=== PATIENT | male | born 1950 | race Caucasian/White ===

== ENCOUNTER 2016-11-24 14:38 | Emergency (ER) | payer OTHER ==
[2016-11-24 14:53] VITALS: BMI 29.7
[2016-11-24] MEDS ORDERED: ASPIRIN 81 MG CHEWABLE TABLETS PO ONE (15:01)
--- NOTE | 2016-11-24 15:06 | PDOC ---
History of Present Illness - General History Source: Patient, Old Records Exam Limitations: No Limitations - History of Present Illness Initial Comments: 11/24/16 15:57 The patient is a 66 year old male, with a significant past medical history of HTN, Afib (on Xarelto) and diabetes, who presents to the emergency department with intermittent left shoulder pain that radiates to the left neck and left jaw for the past 2 days. The patient states that the pain is intermittent, but starts gradually and then gradually goes away. He reports that the pain is sometimes worse upon inspiration. At its worst, the patient reports that his pain is a 7/10 in severity but currently in the ED, he rates it a 3/10 in severity. He reports some nausea but denies any vomiting. The patient denies any headache, dizziness or vision changes. The patient denies any diaphoresis, chest pain or shortness of breath. The patient denies any numbness or tingling in his extremities. The patient reports that he had a negative cardiac catheterization approximately 2 years ago. He reports that he is due to schedule a cardioversion in the next couple of weeks. Allergies: None reported. Past Surgical History: None reported. Social History: Non smoker. Denies alcohol or drug use. PCP: Dr. Chacon <Naya Roth - Last Filed: 11/24/16 18:29> <Piter Reed - Last Filed: 11/25/16 12:07> - General Chief Complaint: Pain Stated Complaint: PAIN LT NECK DOWN ARM Time Seen by Provider: 11/24/16 14:42 Past History <Naya Roth - Last Filed: 11/24/16 18:29> - Past Medical History Cardiac Disorders: Yes (A-FIB) Diabetes: Yes HTN: Yes - Psycho/Social/Smoking Cessation Hx Anxiety: No Suicidal Ideation: No Smoking History: Unknown if ever smoked Hx Alcohol Use: No Drug/Substance Use Hx: No Substance Use Type: None <Piter Reed - Last Filed: 11/25/16 12:07> - Past Medical History Allergies/Adverse Reactions: Allergies Allergy/AdvReac Type Severity Reaction Status Date / Time No Known Allergies Allergy Verified 09/15/16 18:23 Home Medications: Ambulatory Orders Empagliflozin [Jardiance] 10 mg PO DAILY 09/15/16 Losartan Potassium [Cozaar -] 50 mg PO DAILY 09/15/16 Metoprolol Succinate [Toprol Xl] 100 mg PO DAILY 09/15/16 Rivaroxaban [Xarelto -] 10 mg PO DAILY 09/15/16 Atorvastatin Ca [Lipitor] 20 mg PO HS 11/24/16 Polyethylene Glycol 3350 [Miralax (For Bowel Prep) -] 17 gm PO PRN 11/24/16 Review of Systems - Review of Systems Able to Perform ROS?: Yes Comments:: 11/24/16 15:57 CONSTITUTIONAL: No reported: Fever, Chills, Diaphoresis, Generalized Weakness, Malaise, Loss of Appetite HEENT: No reported: Rhinorrhea, Nasal Congestion, Throat Pain, Throat Swelling, Difficulty Swallowing, Mouth Swelling, Ear Pain, Eye Pain, Visual Changes CARDIOVASCULAR: No reported: Chest Pain, Syncope, Palpitations, Irregular Heart Rate, Lightheadedness, Peripheral Edema RESPIRATORY: No reported: Cough, Shortness of Breath, SOB with Exertion, Orthopnea, Wheezing , Stridor, Hemoptysis GASTROINTESTINAL: Reported: +Nausea No reported: Abdominal pain, Abdominal Distension, Vomiting, Diarrhea, Constipation, Melena, Hematochezia GENITOURINARY: No reported: Dysuria, Frequency, Urgency, Hesitancy, Flank Pain, Genital Pain MUSCULOSKELETAL: Reported: +Left Shoulder Pain. Left Neck Pain, Left Jaw Pain. No reported: Joint Swelling, Back pain SKIN: No reported: Rash, Itching, Pallor HEMATOLOGIC/IMMUNOLOGIC: No reported: Easy Bleeding, Easy Bruising, Lymphadenopathy, Frequent infections ENDOCRINE: No reported: Unexplained Weight Gain, Unexplained Weight Loss, Heat Intolerance , Cold Intolerance NEUROLOGIC: No reported: Headache, Focal Weakness, Paresthesias, Vertigo, Lightheadedness, Unsteady Gait, Seizure, Mental Status Changes, Incontinence PSYCHIATRIC: No reported: Anxiety, Depression <CollingsworthNaya Infante - Last Filed: 11/24/16 18:29> *Physical Exam - Vital Signs Last Vital Signs Temp Pulse Resp BP Pulse Ox 98.1 F 69 15 118/80 96 11/24/16 14:50 11/24/16 15:38 11/24/16 15:38 11/24/16 15:38 11/24/16 15:38 - Physical Exam Comments: 11/24/16 15:58 GENERAL: The patient is awake, alert, and fully oriented, nontoxic - in no acute distress. HEAD: Normocephalic, atraumatic. EYES: Extraocular movements intact, sclera anicteric, conjunctiva clear. ENT: Normal voice, moist mucous membranes. NECK: Normal range of motion, supple. LUNGS: Breath sounds equal, clear to auscultation bilaterally. No wheezes, no rhonchi, no rales. HEART: Irregularly irregular, without murmur, rub or gallop. ABDOMEN: Soft, nontender, normoactive bowel sounds. No guarding, no rebound. No CVA tenderness EXTREMITIES: Normal range of motion, no edema. No clubbing or cyanosis. No cords , erythema, or tenderness. NEUROLOGICAL: No facial asymmetry. Normal speech. PSYCH: Normal mood, normal affect. SKIN: Warm, dry, normal turgor. <Naya Roth - Last Filed: 11/24/16 18:29> - Vital Signs Last Vital Signs Temp Pulse Resp BP Pulse Ox 98.1 F 70 18 135/85 98 11/24/16 14:50 11/24/16 14:50 11/24/16 14:50 11/24/16 14:50 11/24/16 14:50 <Piter Reed - Last Filed: 11/25/16 12:07> Heart Score/ECG Review - History History: Slightly suspicious - Electrocardiogram EKG: Normal - Age Age: >/= 65 - Risk Factors Risk Factors Heart Score: Yes Hx Hypercholesterolemia, Yes Hx Hypertension, Yes Hx Diabetes Based on the list above the patient has:: >/=3 risk factors or Hx atherosclerotic disease - Troponin Troponin: </= normal limit - Score Heart Score - Total: 4 - ECG Impressions Comment:: 11/24/16 16:18 Twelve-lead EKG was performed and reviewed by me. Irregularly irregular rate of [address] Changes suggestive of acute ischemia <Piter Reed - Last Filed: 11/25/16 12:07> ED Treatment Course - LABORATORY CBC & Chemistry Diagram: 11/24/16 15:09 11/24/16 15:09 - ADDITIONAL ORDERS Additional order review: Laboratory Results 11/24/16 11/24/16 15:09 15:09 Sodium 134 L Potassium 4.4 Chloride 102 Carbon Dioxide 23 Anion Gap 9 BUN 19 H Creatinine 0.9 Creat Clearance w eGFR > 60 Random Glucose 136 H Calcium 9.3 Total Bilirubin 1.5 H AST 20 ALT 16 Alkaline Phosphatase 49 Creatine Kinase 74 Troponin I < 0.03 L Total Protein 6.4 Albumin 4.1 - Medications Given in the ED: ED Medications Discontinued Medications Generic Name Dose Route Start Last Admin Trade Name Bony PRN Reason Stop Dose Admin Aspirin 162 mg 11/24/16 15:01 11/24/16 15:07 Asa - PO 11/24/16 15:02 162 mg ONCE ONE Administration <Naya Roth - Last Filed: 11/24/16 18:29> - LABORATORY CBC & Chemistry Diagram: 11/24/16 15:09 11/24/16 15:09 - RADIOLOGY Radiology Studies Ordered: Category Date Time Status CHEST X-RAY PORTABLE* [RAD] Stat Radiology 11/24/16 14:58 Ordered <Piter Reed - Last Filed: 11/25/16 12:07> Medical Decision Making - Medical Decision Making 11/24/16 18:[address] Bro Chacon at 18:20. Referred to answering service, awaiting callback. Dr. Chacon returned call at 18:27, case discussed. <Naya Roth - Last Filed: 11/24/16 18:29> - Medical Decision Making 11/24/16 14:59 66y M hx of htn, dm, hl afib on xerolto, presents with intermittnet episodes of L shoulder pain that radiates up to his neck/jaw, onset is gradual on and gradual off, and sometimes endorses it worsens when he is exerting himself and is associated with nausea - dnies any chest pain, shortness of breath, lightheaded/dizziness, vomiting, diaphoresis. pts exam is unremarkable beside an irregularly irregular rhthm. consider possible atypical cp/anginal will obtain ekg to screen fora cs willobtain trops will give asa will obtain cxr pt currently in no discomfort 11/24/16 18:31 labs reviewed xray, trop neg x 1 based on the patients risk factors, and possible anginal equivilent I considered keeping the patient for observation and a rule out. However the patient declines states he would rather go home if possible. I case dw pts PMD - states he feels the pt can go home if he is asymptomatic and enzymes are negative x 2 to folow up with his social insurance administrator. pt signed out to dr. byrne to fu wih his labs and reassess the patient. <Piter Reed - Last Filed: 11/25/16 12:07> *DC/Admit/Observation/Transfer - Attestations Scribe Attestion: 11/24/16 15:58 Documentation prepared by Naya Roth, acting as senior medical technologist for Piter Reed MD. <Naya Roth - Last Filed: 11/24/16 18:29> <Piter Reed - Last Filed: 11/25/16 12:07> Diagnosis at time of Disposition: Neck pain, Shoulder pain - Discharge Dispostion Disposition: AGAINST MEDICAL ADVICE Condition at time of disposition: Stable - Referrals Referrals: STAFF,NOT ON [Primary Care Provider] - - Patient Instructions Additional Instructions: Your sign out AGAINST MEDICAL ADVICE from the emergency room. It is my recommendation that he be admitted as you have multiple risk factors for heart disease and your symptoms could conceivably result from a cardiac cause. You understand by signing out AGAINST MEDICAL ADVICE that you except the liability that goes with it including a heart attack, permanent disability or . If at any time you change your mind and want to stop return the emergency room or your symptoms worsen or do not hesitate to come back or go to the nearest emergency room. Is very important that you follow-up with your social insurance administrator in the morning. Return to the emergency department immediately with ANY new, persistent or worsening symptoms. Continue any medications as previously prescribed by your physician. You should follow up with your primary doctor as soon as possible regarding today's emergency department visit. . Please make sure your doctor reviews the results of your emergency evaluation. Thank you for coming to the Emergency Department today for your care. It was a pleasure to see you today. Please note that your evaluation is INCOMPLETE until you follow-up with your doctor.
[2016-11-24 15:26] LABS: BASOPHIL 1.7 % (0-2.0); EOSINOPHIL 4.9 % (0-4.5); MCH 29.1 pg (25.7-33.7); MCHC 33.4 g/dl (32.0-35.9); MEAN CELL VOLUME 87.1 fl (80-96); MEAN PLT VOLUME 9.1 fl (7.5-11.1); NEUTROPHILS 58.2 % (42.8-82.8); PLATELET COUNT 144 K/MM3 (134-434); RDW 13.4 % (11.9-15.9); WHITE BLOOD COUNT 8.1 K/mm3 (4.0-10.0)
[2016-11-24 15:37] LABS: INR 1.15 (0.82-1.09); PROTHROMBIN TIME (PATIENT) 12.8 SEC (10.2-13.0)
[2016-11-24 15:38] LABS: ALBUMIN 4.1 g/dl (3.5-5.0); ALK PHOS 49 U/L (32-92); ANION GAP 9 (8-16); BILIRUBIN,TOTAL 1.5 mg/dl (0.2-1.0); CALCIUM 9.3 mg/dl (8.4-10.2); CO2 23 mmol/L (22-28); CPK(DFH) 74 IU/L (38-174); CREATININE 0.9 mg/dl (0.6-1.3); GLUCOSE,RANDOM 136 mg/dl (74-106); SGOT/AST 20 U/L (10-42); SGPT/ALT 16 U/L (10-40); TOT PROT 6.4 g/dl (6.4-8.3)
[2016-11-24 15:50] LABS: TROPONIN I (DFP) < 0.03 ng/ml (0.03-0.50)
[2016-11-24] MEDS ORDERED: ACETAMINOPHEN 325 MG TABLET (FP) PO ONE (17:07)
[2016-11-24] MEDS ORDERED: ACETAMINOPHEN 325 MG TABLET (FP) ONE (17:11)
[2016-11-24 21:11] VITALS: BP 116/78; PULSE 80; TEMP 97.9
[2016-11-24 21:21] LABS: CPK(DFH) 72 IU/L (38-174)
[2016-11-24 21:46] LABS: TROPONIN I (DFP) < 0.03 ng/ml (0.03-0.50)
--- NOTE | 2016-11-24 21:48 | PDOC ---
*Physical Exam - Vital Signs Last Vital Signs Temp Pulse Resp BP Pulse Ox 97.9 F 80 17 116/78 95 11/24/16 21:10 11/24/16 21:10 11/24/16 21:10 11/24/16 21:10 11/24/16 21:10 ED Treatment Course - LABORATORY CBC & Chemistry Diagram: 11/24/16 15:09 11/24/16 15:09 - ADDITIONAL ORDERS Additional order review: Laboratory Results 11/24/16 11/24/16 11/24/16 20:47 15:09 15:09 INR 1.15 Sodium Potassium Chloride Carbon Dioxide Anion Gap BUN Creatinine Creat Clearance w eGFR Random Glucose Calcium Total Bilirubin AST ALT Alkaline Phosphatase Creatine Kinase 72 74 Troponin I < 0.03 L B-Natriuretic Peptide Total Protein Albumin 11/24/16 15:09 INR Sodium 134 L Potassium 4.4 Chloride 102 Carbon Dioxide 23 Anion Gap 9 BUN 19 H Creatinine 0.9 Creat Clearance w eGFR > 60 Random Glucose 136 H Calcium 9.3 Total Bilirubin 1.5 H AST 20 ALT 16 Alkaline Phosphatase 49 Creatine Kinase Troponin I B-Natriuretic Peptide 1240.42 H Total Protein 6.4 Albumin 4.1 11/24/16 15:09 RBC 5.19 MCV 87.1 MCHC 33.4 RDW 13.4 MPV 9.1 Neutrophils % 58.2 Lymphocytes % 24.3 Monocytes % 10.9 H Eosinophils % 4.9 H Basophils % 1.7 - Medications Given in the ED: ED Medications Discontinued Medications Generic Name Dose Route Start Last Admin Trade Name Freq PRN Reason Stop Dose Admin Acetaminophen 650 mg 11/24/16 17:07 11/24/16 17:12 Tylenol - PO 11/24/16 17:08 650 mg ONCE ONE Administration Aspirin 162 mg 11/24/16 15:01 11/24/16 15:07 Asa - PO 11/24/16 15:02 162 mg ONCE ONE Administration Progress Note - Progress Note Progress Note: Care of this patient was transferred to [place] from Dr. johnson at 7 PM. Patient came in complaining of some shoulder pain radiating to his neck and no other associated symptoms. Patient has multiple cardiac risk factors and his heart score is 4. Patient was advised that he should be admitted as his risk of an adverse effect is markedly increased secondary to his risk factors. Patient is adamant that he does not want to be admitted and did agree to wait for his second troponin to come back in if it is negative he will sign out AMA. 21:45 Second troponin was negative. Patient will sign out AGAINST MEDICAL ADVICE, understanding the risks including heart attack, versus mental disability, sudden . Patient does have a juvenile justice specialist in [place] that he will follow-up with [place] in the morning. Patient was advised that he should help any additional symptoms or any concerns he should come back immediately or go to the nurse to emergency room. *DC/Admit/Observation/Transfer Diagnosis at time of Disposition: Neck pain Shoulder pain Qualifiers: Laterality: left Chronicity: acute Qualified Code(s): M25.512 - Pain in left shoulder - Discharge Dispostion Disposition: AGAINST MEDICAL ADVICE Condition at time of disposition: Stable - Referrals Referrals: STAFF,NOT ON [Primary Care Provider] - - Patient Instructions Additional Instructions: Your sign out AGAINST MEDICAL ADVICE from the emergency room. It is my recommendation that he be admitted as you have multiple risk factors for heart disease and your symptoms could conceivably result from a cardiac cause. You understand by signing out AGAINST MEDICAL ADVICE that you except the liability that goes with it including a heart attack, permanent disability or . If at any time you change your mind and want to stop return the emergency room or your symptoms worsen or do not hesitate to come back or go to the nearest emergency room. Is very important that you follow-up with your juvenile justice specialist in the morning. Return to the emergency department immediately with ANY new, persistent or worsening symptoms. Continue any medications as previously prescribed by your physician. You should follow up with your primary doctor as soon as possible regarding today's emergency department visit. . Please make sure your doctor reviews the results of your emergency evaluation. Thank you for coming to the Emergency Department today for your care. It was a pleasure to see you today. Please note that your evaluation is INCOMPLETE until you follow-up with your doctor. - Post Discharge Activity
--- NOTE | 2016-11-25 15:28 | EKG ---
Test Reason : Blood Pressure : / mmHG Vent. Rate : 073 BPM Atrial Rate : 258 BPM P-R Int : 000 ms QRS Dur : 106 ms QT Int : 402 ms P-R-T Axes : 000 -65 -13 degrees QTc Int : 442 ms ATRIAL FIBRILLATION LEFT ANTERIOR FASCICULAR BLOCK ABNORMAL ECG WHEN COMPARED WITH ECG OF 24-NOV-2016 14:45, NO SIGNIFICANT CHANGE WAS FOUND Confirmed by VENESSA PRAKASH MD ([id number]) on 11/25/2016 3:27:33 PM Referred By: DON Confirmed By:VENESSA PRAKASH MD
--- NOTE | 2016-11-27 18:11 | EKG ---
Test Reason : Blood Pressure : / mmHG Vent. Rate : 071 BPM Atrial Rate : 214 BPM P-R Int : 000 ms QRS Dur : 108 ms QT Int : 382 ms P-R-T Axes : 000 -64 -06 degrees QTc Int : 415 ms ATRIAL FIBRILLATION LEFT ANTERIOR FASCICULAR BLOCK NO PREVIOUS ECGS AVAILABLE Confirmed by MD SRAVAN, ELIZABETH ([id number]) on 11/27/2016 6:10:57 PM Referred By: DON Confirmed By:ELIZABETH HINSON MD
== END 2016-11-24 21:55 | disposition left against medical advice (07) ==
LOC: FER 14:38
DX: M25.512 Pain in left shoulder (principal); I10 Essential (primary) hypertension; I48.91 Unspecified atrial fibrillation; E11.9 Type 2 diabetes mellitus without complications
CPT/HCPCS: 36415; 71010-TC; 80053; 82550; 83880; 84484; 85025; 85610; 93005; 93010; 99285-25

== ENCOUNTER 2018-09-03 05:36 | Emergency (ER) | payer OTHER ==
[2018-09-03 05:46] VITALS: TEMP 97.9; BMI 29.9
--- NOTE | 2018-09-03 06:00 | PDOC ---
History of Present Illness - General Chief Complaint: Injury Stated Complaint: LAC TO LT EYEBROW Time Seen by Provider: 09/03/18 05:45 History Source: Patient Exam Limitations: No Limitations - History of Present Illness Initial Comments: 09/03/18 05:56 This is a 68-year-old male who slipped and fell when he was getting out of bed this morning hitting his forehead on the nightstand. Patient did not pass out patient denies any nausea, headache or dizziness. Patient denies any change in vision. Patient takes xeralto. Allergies: None Past Medical History: Hypertension, high cholesterol, diabetes Social history: Lives with family. No smoking. No alcohol. No illicit drugs. Surgical history: None General: No fevers or chills, no weakness, no weight loss HEENT: No change in vision. No sore throat,. No ear pain CardioVascular: no chest discomfort. No shortness of breath Respiratory:No cough, or wheezing. Gastrointestinal: no nausea, vomiting, diarrhea or constipation, No rectal bleeding Genitourinary: No dysuria, hematuria, or frequency Musculoskeletal: No joint or muscle pain or swelling Neurologic: No headache, vertigo, dizziness or loss of consciousness Psychiatric: nor depression Skin: No rashes or easy bruising Endocrine: no increased thirst or abnormal weight change Allergic: no skin or latex allergy All other systems reviewed and normal Exam: General: Well-nourished well-developed individual, no acute distress HEENT: Throat: Normal, tonsils normal, no erythema or exudate Neck: Supple, no meningeal signs, no lymphadenopathy Eyes::Pupils equal reactive and round, extraocular motion intact Chest: Nontender to palpation Cardiac: S1-S2 normal, regular rate and rhythm, no murmurs rubs or gallops Respiratory: Lungs clear to auscultation bilateral Abdomen: Soft, nondistended, normal bowel sounds, there is no tenderness on palpation diffusely Extremities: Warm, dry, no cyanosis, clubbing, or edema Skin: No rashes Neuro: Alert and oriented x3, CN II - XII intact, nonfocal exam with normal strength, normal sensation, normal reflexes, normal gait, Psych: Normal mood and affect Procedure note: Laceration repair with Dermabond Laceration cleaned with some peroxide and closed with Dermabond Patient tolerated well Assessment and plan: This is a 68-year-old male with a laceration to his left eyebrow. Laceration was closed with Dermabond. 07:00 Care of patient transferred to , patient has a head CT pending Case discussed in detail with oncoming Emergency Physician including history, physical exam and ancillary studies. Oncoming Emergency Physician has assumed care for the patient and will complete the evaluation and treatment. Patient is aware of the plan. Pt is clinically unchanged and stable. Past History - Past Medical History Allergies/Adverse Reactions: Allergies Allergy/AdvReac Type Severity Reaction Status Date / Time No Known Allergies Allergy Verified 09/15/16 18:23 Home Medications: Ambulatory Orders Empagliflozin [Jardiance] 10 mg PO DAILY 09/15/16 Losartan Potassium [Cozaar -] 50 mg PO DAILY 09/15/16 Rivaroxaban [Xarelto -] 10 mg PO DAILY 09/15/16 Atorvastatin Ca [Lipitor] 20 mg PO HS 11/24/16 Polyethylene Glycol 3350 [Miralax (For Bowel Prep) -] 17 gm PO PRN 11/24/16 Sitagliptin Phos/Metformin HCl [Janumet 50-500 mg Tablet] 1 each PO DAILY Cardiac Disorders: Yes (A-FIB) COPD: No Diabetes: Yes HTN: Yes Hypercholesterolemia: Yes - Immunization History Immunization Up to Date: No - Suicide/Smoking/Psychosocial Hx Smoking History: Never smoked Hx Alcohol Use: No Drug/Substance Use Hx: No Substance Use Type: None *Physical Exam - Vital Signs Last Vital Signs Temp Pulse Resp BP Pulse Ox 97.9 F 75 18 137/90 95 09/03/18 05:42 09/03/18 05:42 09/03/18 05:42 09/03/18 05:42 09/03/18 05:42 Moderate Sedation - Procedure Monitoring Vital Signs: Procedure Monitoring Vital Signs Temperature 97.9 F 09/03/18 05:42 Pulse Rate 75 09/03/18 05:42 Respiratory Rate 18 09/03/18 05:42 Blood Pressure 137/90 09/03/18 05:42 O2 Sat by Pulse Oximetry (%) 95 09/03/18 05:42 *DC/Admit/Observation/Transfer Diagnosis at time of Disposition: Laceration of left eyebrow Qualifiers: Encounter type: initial encounter Qualified Code(s): S01.112A - Laceration without foreign body of left eyelid and periocular area, initial encounter - Discharge Dispostion Condition at time of disposition: Stable - Referrals Referrals: Bro Chacon [Primary Care Provider] - - Patient Instructions - Post Discharge Activity
--- NOTE | 2018-09-03 08:22 | PDOC ---
*Physical Exam - Vital Signs Last Vital Signs Temp Pulse Resp BP Pulse Ox 97.9 F 75 18 137/90 95 09/03/18 05:42 09/03/18 05:42 09/03/18 05:42 09/03/18 05:42 09/03/18 05:42 Medical Decision Making - Medical Decision Making 09/03/18 08:21 pt signed out from Dr Flynn pending CT head CT head neg for bleed or pathology eyebrow lac repaired with dermabond. no abx topically, allow for epithelialization and healing. monitor for wounds or s/s infection DC in stable condition with family. *DC/Admit/Observation/Transfer Diagnosis at time of Disposition: Laceration of left eyebrow Qualifiers: Encounter type: initial encounter Qualified Code(s): S01.112A - Laceration without foreign body of left eyelid and periocular area, initial encounter - Discharge Dispostion Condition at time of disposition: Stable - Referrals Referrals: Bro Chacon [Primary Care Provider] - - Patient Instructions Printed Discharge Instructions: How to Prevent Falls, DI for Closed Head Injury , DI for Laceration Repair With Dermabond Additional Instructions: FALL PREVENTION AT HOME WHAT YOU NEED TO KNOW There are many different factors that can increase your risk of falls. Falls can happen any time, but the majority of them occur in the home. Fall prevention includes ways to make your home and other areas safer. It also includes ways you can move more carefully to prevent a fall. Health conditions that cause changes in your blood pressure, vision, or muscle strength and coordination may increase your risk for falls. Medicines, including anesthesia, may increase your risk for falls if they make you dizzy, weak, or sleepy. FALL PREVENTION TIPS Stand or sit up slowly. This may help you keep your balance and prevent falls. Do not walk and talk at the same time. Concentrate on the task of walking and continue the conversation after you've reached a safe place. Wear shoes that fit well and have soles that die engraver. Wear shoes both inside and outside. Use slippers with good die engraver. Avoid shoes with high heels. Use assistive devices as directed. Your healthcare provider may suggest that you use a cane or walker to help you keep you balance. Be sure you have adequate lighting throughout your house. Keep paths clear. Remove books, shoes and other objects from walkways and stairs. Keep cords for telephones and lamps out of the way so you dont need to walk over them. Remove small rugs or secure them with double-sided tape. This will prevent you from tripping. Use a nightlight when getting out of bed at night. Stay active to maintain overall strength and endurance. Know your limitations. If there is a task you can not complete with ease, do not risk a fall by trying to complete it. Call 911 or have someone else call if: You have fallen and are unconscious You have fallen and cannot move part of your body Contact your healthcare provider if: You have fallen and have pain or a headache You have questions or concerns about your condition or care. - Post Discharge Activity
[2018-09-03 08:46] VITALS: BP 132/86; PULSE 76
== END 2018-09-03 08:44 | disposition home or self-care (01) ==
LOC: FER 05:36
PROC: 0HQ1XZZ Repair Face Skin, External Approach (ICD-10-PCS; principal; 2018-09-03)
DX: S01.112A Laceration without foreign body of left eyelid and periocular area, initial encounter (principal); W06.XXXA Fall from bed, initial encounter; Y93.89 Activity, other specified; Y92.003 Bedroom of unspecified non-institutional (private) residence as the place of occurrence of the external cause; E11.9 Type 2 diabetes mellitus without complications; I10 Essential (primary) hypertension; I48.91 Unspecified atrial fibrillation; E78.00 Pure hypercholesterolemia, unspecified
CPT/HCPCS: 70450-TC; 99281-25

== ENCOUNTER 2019-10-07 19:31 | Emergency (ER) | payer OTHER ==
[2019-10-07 19:52] VITALS: BP 114/81; PULSE 90; TEMP 97.7; BMI 29.9
--- NOTE | 2019-10-07 20:25 | PDOC ---
Documentation entered by Neyda Luevano SCRIBE, acting as scribe for Naima Harrell MD. Naima Harrell MD: This documentation has been prepared by the Chloé chairez Joy, SCRIBE, under my direction and personally reviewed by me in its entirety. I confirm that the documentation accurately reflects all work, treatment, procedures, and medical decision making performed by me. History of Present Illness - General Chief Complaint: Injury Stated Complaint: HEAD INJURY Time Seen by Provider: 10/07/19 19:39 History Source: Patient Exam Limitations: No Limitations - History of Present Illness Initial Comments: 10/07/19 20:22 The patient is a 69 year old male with significant past medical history of HTN, Afib, negative cardiac catheterization, arthritis and diabetes, who presents to the ED s/p mechanical fall earlier today. As per patient, he was walking outside with a group of people and he stepped forward and tripped over the front tip of his shoe and fell on his right side striking his right head and right shoulder. The patient has bruising to his right forehead and endorses right shoulder pain. Patient's family member is concerned because the patient is on a blood thinner which prompted their arrival to the ED for evaluation. The patient denies any other injuries. Denies LOC. Denies seizures during or after the fall. PAST MEDICAL HISTORY: HTN, Afib, negative cardiac catheterization, arthritis and diabetes PAST SURGICAL HISTORY: no significant history FAMILY HISTORY: no pertinent history SOCIAL HISTORY: Pt lives with family MEDICATIONS: reviewed ALLERGIES: NKA 10/07/19 21:16 Assessment and plan: This is a 69-year-old male who had a mechanical trip and fall hit his forehead and right shoulder. Patient came in for evaluation as he is on blood thinners. Patient had a right shoulder and head CT x-rays Shoulder x-ray negative for any acute pathology fracture or dislocation Head CT was done and read by the radiologist as no evidence of acute intracranial pathology Patient discharged home will follow-up with his primary care doctor. Past History - Past Medical History Allergies/Adverse Reactions: Allergies Allergy/AdvReac Type Severity Reaction Status Date / Time No Known Allergies Allergy Verified 09/15/16 18:23 Home Medications: Ambulatory Orders Empagliflozin [Jardiance] 10 mg PO DAILY 09/15/16 Losartan Potassium [Cozaar -] 50 mg PO DAILY 09/15/16 Rivaroxaban [Xarelto -] 10 mg PO DAILY 09/15/16 Atorvastatin Ca [Lipitor] 20 mg PO HS 11/24/16 Polyethylene Glycol 3350 [Miralax (For Bowel Prep) -] 17 gm PO PRN 11/24/16 Sitagliptin Phos/Metformin HCl [Janumet 50-500 mg Tablet] 1 each PO DAILY Cardiac Disorders: Yes (A-FIB) COPD: No Diabetes: Yes HTN: Yes Hypercholesterolemia: Yes Other medical history: ARTHRITIS - Immunization History Immunization Up to Date: No - Psycho Social/Smoking Cessation Hx Smoking History: Unknown if ever smoked Have you smoked in the past 12 months: No Information on smoking cessation initiated: No Hx Alcohol Use: No Drug/Substance Use Hx: No Substance Use Type: None Review of Systems - Review of Systems Able to Perform ROS?: Yes Comments:: 10/07/19 20:23 General: No fevers or chills, no weakness, no weight loss HEENT: +Right forehead bruise. No change in vision. No sore throat,. No ear pain CardioVascular: No chest pain or shortness of breath Respiratory:No cough, or wheezing. Gastrointestinal: no nausea, vomiting, diarrhea or constipation, No rectal bleeding Genitourinary: No dysuria, hematuria, or frequency Musculoskeletal: +Right shoulder pain. No joint or muscle pain or swelling Neurologic: No headache, vertigo, dizziness or loss of consciousness Skin: No rashes or easy bruising Allergic: no skin or latex allergy All other systems reviewed and normal *Physical Exam - Vital Signs Last Vital Signs Temp Pulse Resp BP Pulse Ox 97.7 F 90 16 114/81 96 10/07/19 19:34 10/07/19 19:34 10/07/19 19:34 10/07/19 19:34 10/07/19 19:34 - Physical Exam 10/07/19 20:23 GENERAL: The patient is awake, alert, and fully oriented, in no acute distress. HEAD: +Contusion on right forehead. EYES: Pupils equal, round and reactive to light, extraocular movements intact, sclera anicteric, conjunctiva clear. EXTREMITIES: +Mild tenderness on anterior lateral portion of right shoulder w/ decreased ROM secondary to discomfort. No edema. NEUROLOGICAL: Normal speech, normal gait. PSYCH: Normal mood, normal affect. SKIN: Intact, Warm, Dry, normal turgor, no rashes. Discharge - Discharge Information Problems reviewed: Yes Clinical Impression/Diagnosis: Contusion of forehead Qualifiers: Encounter type: initial encounter Qualified Code(s): S00.83XA - Contusion of other part of head, initial encounter Fall Qualifiers: Encounter type: initial encounter Qualified Code(s): W19.XXXA - Unspecified fall, initial encounter Condition: Stable Disposition: HOME - Admission Yes - Follow up/Referral Referrals: Bro Chacon [Primary Care Provider] - - Patient Discharge Instructions Additional Instructions: For the pain take Tylenol 1000 mg as often this 3-4 times a day if needed. Someone to check on you once tonight during the night. You should be arousable to their normal level of arousability for that time of the night. If you have been vomiting, had a seizure, or you are unable to be aroused or there is a change in your mental status call 911 go back to the nearest emergency department. Take Tylenol as needed for pain. Followup with your primary care doctor Return to the emergency department immediately with ANY new, persistent or worsening symptoms. Continue any medications as previously prescribed by your physician. You should follow up with your primary doctor as soon as possible regarding today's emergency department visit. . Please make sure your doctor reviews the results of your emergency evaluation. Thank you for coming to the Emergency Department today for your care. It was a pleasure to see you today. Please note that your evaluation is INCOMPLETE until you follow-up with your doctor. - Post Discharge Activity
== END 2019-10-07 21:22 | disposition home or self-care (01) ==
LOC: FER 19:31
DX: S00.83XA Contusion of other part of head, initial encounter (principal); W01.0XXA Fall on same level from slipping, tripping and stumbling without subsequent striking against object, initial encounter; Y93.89 Activity, other specified; Y92.89 Other specified places as the place of occurrence of the external cause; Z79.01 Long term (current) use of anticoagulants; I48.91 Unspecified atrial fibrillation; E11.9 Type 2 diabetes mellitus without complications; I10 Essential (primary) hypertension; E78.00 Pure hypercholesterolemia, unspecified; M19.90 Unspecified osteoarthritis, unspecified site
CPT/HCPCS: 70450-TC; 73030-TC-RT-FY; 99281-25

== ENCOUNTER 2022-12-20 14:44 | Emergency (ER) | payer OTHER ==
[2022-12-20 15:14] VITALS: BP 135/69; PULSE 64; RESP 18; TEMP 97.7; BMI 27.6
[2022-12-20 16:02] LABS: ALBUMIN 4.1 g/dl (3.4-5.0); BILIRUBIN,TOTAL 2.4 mg/dl (0.2-1); CALCIUM 8.9 mg/dl (8.5-10); CREATININE 0.8 mg/dl (0.55-1.3); TOT PROT 6.9 g/dl (6.4-8.2)
[2022-12-20 16:12] LABS: HEMATOCRIT 41.7 % (35.4-49); HEMOGLOBIN 14.2 G/dL (11.7-16.9); MCH 31.3 pg (25.7-33.7); MCHC 34.1 g/dl (32.0-35.9); MEAN CELL VOLUME 92.1 fl (80-96); MEAN PLT VOLUME 8.7 fl (7.5-11.1); PLATELET COUNT 159.9 10^3/uL (134-434); RBC 4.53 10^6/uL (4.00-5.60); RDW 15.4 % (11.9-15.9); WHITE BLOOD COUNT 8.7 10^3/uL (4.0-10.8)
== END 2022-12-20 16:31 | disposition home or self-care (01) ==
LOC: FER 14:44
DX: S09.90XA Unspecified injury of head, initial encounter (principal); R07.9 Chest pain, unspecified; W01.0XXA Fall on same level from slipping, tripping and stumbling without subsequent striking against object, initial encounter; Z79.01 Long term (current) use of anticoagulants
CPT/HCPCS: 36415; 70450-TC; 71046-TC-FY; 80053; 84484; 85027; 93005; 99284-25

== ENCOUNTER 2023-01-24 15:52 | Emergency (ER) | payer OTHER ==
[2023-01-24 16:02] VITALS: BP 142/85; PULSE 84; RESP 16; TEMP 97.8; BMI 27.5
[2023-01-24 16:30] LABS: HEMATOCRIT 42.3 % (35.4-49); HEMOGLOBIN 14.1 G/dL (11.7-16.9); MCH 30.9 pg (25.7-33.7); MCHC 33.3 g/dl (32.0-35.9); MEAN CELL VOLUME 92.9 fl (80-96); PLATELET COUNT 142.7 10^3/uL (134-434); RBC 4.55 10^6/uL (4.00-5.60); RDW 15.6 % (11.9-15.9); WHITE BLOOD COUNT 7.1 10^3/uL (4.0-10.8)
[2023-01-24 16:45] LABS: INR 1.08 (0.83-1.09); PROTHROMBIN TIME (PATIENT) 12.4 SEC (9.7-13.0)
[2023-01-24 16:53] LABS: ALBUMIN 4.1 g/dl (3.4-5.0); BILIRUBIN,TOTAL 1.7 mg/dl (0.2-1); CALCIUM 9.3 mg/dl (8.5-10); CREATININE 0.8 mg/dl (0.55-1.3)
[2023-01-24] MEDS ORDERED: MECLIZINE HCL 12.5 MG TABLET PO ONE (17:23)
[2023-01-24] MEDS ORDERED: MECLIZINE HCL 12.5 MG TABLET ONE (17:30)
== END 2023-01-24 17:36 | disposition home or self-care (01) ==
LOC: FER 15:52
DX: R42 Dizziness and giddiness (principal)
CPT/HCPCS: 36415; 71045-TC-FY; 80053; 84484; 85027; 85610; 93005; 99285-25

== ENCOUNTER 2024-04-06 09:22 | Day surgery (SDC) | payer OTHER ==
[2024-03-29 13:52] VITALS: BMI 27.8
[2024-04-06] MEDS ORDERED: BSS (NA/CA/MG/K) BALANCED SALT SOLUTION OPHTH SOLN 15 ML BOTTLE ONE (09:51)
[2024-04-06] MEDS ORDERED: NEO/POLYMYX B SULF/DEXAMETH OPHTHALMIC 5ML BOTTLE ONE (09:51)
[2024-04-06] MEDS ORDERED: TETRACAINE 0.5% OPHTH SOLN 2 ML BOTTLE ONE (09:51)
[2024-04-06] MEDS ORDERED: LIDOCAINE 1% P/F 10 MG/ML VIAL ONE (09:51)
[2024-04-06] MEDS ORDERED: CARBACHOL 0.01% INTRA-OCULAR 1.5 ML VIAL ONE (09:51)
[2024-04-06] MEDS: CIPROFLOXACIN 0.3% EYE DROPS 5 ML BOTTLE ONE (10:10)
[2024-04-06] MEDS: CYCLOPENTOLATE 2% OPHTH SOLN 2 ML BOTTLE ONE (10:10)
[2024-04-06] MEDS: PHENYLEPHRINE 2.5% OPTHALMIC DROP 2ML BOTTLE ONE (10:10)
[2024-04-06] MEDS: TROPICAMIDE 1% OPHTH SOLN 15 ML BOTTLE ONE (10:10)
[2024-04-06 10:16] VITALS: PULSE 66
[2024-04-06] MEDS ORDERED: MIDAZOLAM HCL 2 MG/2 ML SINGLE DOSE VIAL ONE ×2 (11:12→11:51)
[2024-04-06 12:14] VITALS: RESP 18; TEMP 97.2
[2024-04-06 13:59] VITALS: BP 122/70
== END 2024-04-06 13:40 | disposition home or self-care (01) ==
LOC: FASU 09:22
PROVIDERS: ATTEND Ophthalmology
PROC: 08RJ3JZ Replacement of Right Lens with Synthetic Substitute, Percutaneous Approach (ICD-10-PCS; principal; 2024-04-06 11:51)
DX: H26.8 Other specified cataract (principal)
CPT/HCPCS: 66984; V2632; 82962